=== PATIENT | male | born 1970 | race Caucasian/White ===

== ENCOUNTER 2017-04-24 06:42 | Day surgery (SDC) | payer OTHER ==
[2017-04-22 15:55] LABS: ABSOLUTE EOSINOPHILS # (AUTO) 0.1 10^3/uL (0.0-0.6); ABSOLUTE LYMPHOCYTES (AUTO) 1.7 10^3/uL (0.5-4.7); ABSOLUTE MONOCYTES (AUTO) 0.3 10^3/uL (0.1-1.4); ABSOLUTE NEUT (AUTO) 3.6 10^3/uL (1.7-8.2); BASOPHILS % (AUTO) 0.6 % (0-2); EOSINOPHILS % (AUTO) 1.2 % (0-6); HEMATOCRIT 45.9 % (37.9-51.0); HEMOGLOBIN 15.1 g/dL (13.5-17.0); HGB HCT DIFFERENCE -0.6; LYMPHOCYTES % (AUTO) 29.7 % (13-45); MEAN CORPUSCULAR HEMOGLOBIN 29.7 pg (27.0-33.4); MEAN CORPUSCULAR VOLUME 90 fl (80-97); MONOCYTES % (AUTO) 5.1 % (3-13); RED CELL DISTRIBUTION WIDTH 13.4 % (11.5-14.0); SEGMENTED NEUTROPHILS % (AUTO) 63.4 % (42-78); WHITE BLOOD COUNT 5.7 10^3/uL (4.0-10.5)
[2017-04-22 16:00] LABS: APPEARANCE,URINE CLEAR; BILIRUBIN,URINE NEGATIVE (NEGATIVE); GLUCOSE, URINE NEGATIVE (NEGATIVE); KETONES,URINE NEGATIVE (NEGATIVE); LEUKOCYTE ESTERASE,URINE NEGATIVE (NEGATIVE); NITRITE,URINE NEGATIVE (NEGATIVE); PROTEIN,URINE NEGATIVE (NEGATIVE); URINE SPECIFIC GRAVITY 1.005; UROBILINOGEN,URINE NEGATIVE mg/dL (<2.0)
[~2017-04-24 06:42] MED LIST: CLINDAMYCIN 600 MG/D5W RTU 600 MG/50 ML RTUPB IV PRN; RINGERS SOLUTION,LACTATED 1,000 ML IV PRN
[2017-04-24] MEDS ORDERED: MIDAZOLAM 2 MG/2 ML INJ ONE (07:30)
[2017-04-24] MEDS ORDERED: PROPOFOL INJ 200 MG/20 ML VIAL IV ONE (07:31)
[2017-04-24] MEDS ORDERED: FENTANYL CITRATE INJ/PF 250 MCG/5 ML AMPULE ONE (07:31)
[2017-04-24] MEDS ORDERED: KETAMINE HCL INJ 500 MG/10 ML VIAL ONE (07:31)
[2017-04-24] MEDS: BUPIVACAINE HCL 0.5 % INJ/PF 30 ML SDV ONE ×2 (09:51)
[2017-04-24] MEDS: LIDOCAINE 2% INJ (20 MG/ML) 20 ML MDV ONE ×2 (09:51)
--- NOTE | 2017-04-24 10:22 | RADIOLOGY REPORT (SQ) ---
EXAM DESCRIPTION: FOOT RIGHT 2 VIEWS COMPLETED DATE/TIME: 04/24/2017 10:08 am REASON FOR STUDY: HARDWARE PLACEMEMT/ REVISION RT FOOT ASSISTED W/ FLUORO M20.21 HALLUX RIGIDUS, RI GHT FOOT COMPARISON: None. FLUOROSCOPY TIME: 0.04 seconds 3 images saved to PACS. TECHNIQUE: Intra-operative images acquired during surgical procedure to evaluate progress. NUMBER OF IMAGES: 3 image LIMITATIONS: None. FINDINGS: Fluoroscopic images were obtained during performance of hardware placement for a right joselyn t revision. IMPRESSION: IMAGE(S) OBTAINED DURING PROCEDURE. COMMENT: Quality ID [id number]: Final reports for procedures using fluoroscopy that document radiation exp osure indices, or exposure time and number of fluorographic images (if radiation exposure indices are not available) Please consult full operative report of the attending physician for description of the procedure. TECHNICAL DOCUMENTATION: JOB ID: [id number] [employer] All Rights Reserved
--- NOTE | 2017-04-24 10:23 | RADIOLOGY REPORT (SQ) ---
EXAM DESCRIPTION: NO CHG FLUORO COMPLETE DATE/TIME: 04/24/2017 10:08 am REASON FOR STUDY: HARDWARE PLACEMEMT/ REVISION RT FOOT ASSISTED W/ FLUORO M20.21 HALLUX RIGIDUS, RI GHT FOOT FINDINGS: Please see combined report for performance of procedure and radiologic supervision and int erpretation. IMPRESSION: Please see combined report for performance of procedure and radiologic supervision and i nterpretation.
--- NOTE | 2017-04-24 11:29 | [facility] OPERATIVE REPORT E ---
[facility] Operative Report NAME: MASSIMO GUTIERRES AGE: 46Y DATE OF SURGERY: 04/24/2017 ROOM: PREOPERATIVE DIAGNOSIS: Hallux limitus right foot. POSTOPERATIVE DIAGNOSIS: Hallux limitus right foot. PROCEDURES PERFORMED: 1. Revision surgery of failed implant first metatarsophalangeal joint of right foot. 2. Arthroplasty with total Toribio toe implant right foot. SURGEON: SOWMYA RESENDIZ D.P.M. INTRAOPERATIVE FINDINGS: 1. Indicated exuberant scar formation around the first metatarsal joint caused be 2 previous surgical interventions in this area. 2. Proliferation of bone around the resected distal first metatarsal and the base of the proximal phalanx. 3. The grommets of the previous implant have been embedded into the bony tissue with proliferation of bone over the grommets. 4. The total Toribio implant was engulfed with scar tissue and totally lost its function. Intraoperative findings were confirmed clinically and radiographically. PROCEDURE: With the patient laying in a dorsal recumbent position, right foot and leg were prepped and draped in the usual standard sterile orthopedic manner after general anesthesia was accomplished successfully. Next, the right leg was elevated for approximately 2 minutes of time and the right ankle pneumatic tourniquet was inflated up to 250 mmHg after the blood was exsanguinated from the right foot. The right leg was brought to the level of the table. Attention was directed right over the first metatarsophalangeal joint. A curvilinear incision was placed right over the joint. The initial incision was deepened. The superficial and deep subcutaneous tissues were dissected with a great deal of difficulties due to the exuberant scar formation around this anatomical area. The extensor hallucis tendon was totally bound and incorporated into the scar tissue which caused some degenerative changes with the tendon. The extensor hallucis tendon was released from all adhesions at this point. By this time all bleeders were ligated and all vital structures were identified and protected from surgical trauma. Next, the capsulotomy was performed around the first metatarsophalangeal joint which was a T capsulotomy with the roof of the T capsulotomy being medial and adjacent to extensor hallucis longus tendon and the foot of the T capsulotomy was placed right over the joint and ran in medial and inferior direction. Capsular and periosteal structures were dissected off of bone. The capsule was also very thick due to severe scarring. There were lots of inflammatory synovitis present as well. At this point, the soft tissue was retracted and the failed implant was visualized. The implant was removed. The grommets were released from the bone tissue and removed in toto as well. At this point, the bed for the new implant needed to be prepared. The proliferation of the bone was eradicated. All the osteophytes had been resected and the bed into the proximal phalanx and into the distal part of the first metatarsal were reconstructed so the new implant can be seated without any problems. Once the preparatory work for the bed of the implant was completed, a trial implant was introduced and the size 4 was the proper size for this patient. With the trial implant in place, the first metatarsophalangeal joint was subjected to full range of motion and dorsiflexion was about 85 degrees with good plantar flexion as well. Next, the trial implant was removed. The surgical area was irrigated with copious amount of sterile saline solution and the reference toe implant size 4 was introduced into the surgical area. Final evaluation was conducted together with an intraoperative x-ray. The implant appeared to be pretty well seated in its bed and was the proper size as well. At this point the right ankle pneumatic tourniquet was deflated. Circulation to the right foot returned to normal immediately as the normal digital color and temperature became apparent. To prevent excessive scarring postoperatively, an AlloWrap was introduced into the surgical field and it coated the denuded bony surfaces at the distal aspect of the first metatarsal and the base of the proximal phalanx. After that the capsular structures were closed with 2-0 Vicryl. The subcutaneous tissues from deep to superficial were closed with 2-0 Vicryl. The skin edges were re-coapted and closed with 4-0 nylon using continuous interlocked stitch. Betadine compression dressing was applied around the surgical area. At this point, the total ankle block was performed with a 50/50 mixture of 2% Xylocaine and 0.5% Marcaine. Finally, the SHEBA bandage was applied around the surgical area as well followed with a surgical shoe. This patient tolerated the surgical procedures well and left the operating room with stable vital signs and in good condition. The patient was taken to the recovery room alert, conscious, and oriented. There are no permanent disabilities anticipated at this time. DICTATING PHYSICIAN: Mani HORTONPMeg [id number] PHY#: [id number] ID: [id number] JOB#: [id number] ACCT: [id number] cc:SOWMYA RESENDIZ D.P.M. > YOGI
== END 2017-04-24 11:34 | disposition home or self-care (01) ==
LOC: SC 06:42
PROVIDERS: ATTEND Podiatrist Foot & Ankle Surgery
PROC: 0HTRXZZ Resection of Toe Nail, External Approach (ICD-10-PCS; principal; 2017-04-24 07:30)
DX: M20.21 Hallux rigidus, right foot (principal); J45.909 Unspecified asthma, uncomplicated; F17.210 Nicotine dependence, cigarettes, uncomplicated; Z88.6 Allergy status to analgesic agent; Z88.5 Allergy status to narcotic agent; Z88.0 Allergy status to penicillin
CPT/HCPCS: 11750 ×2; 36415; 85025; 81001; 73620; J2250; J3490; J3010; J2704; 01480

== ENCOUNTER → 2017-09-01 | Outpatient (CLI) | payer OTHER ==
--- NOTE | 2017-09-01 09:16 | RADIOLOGY REPORT (SQ) ---
EXAM DESCRIPTION: CT ABD/PELVIS NO ORAL OR IV COMPLETED DATE/TIME: 09/01/2017 9:02 am REASON FOR STUDY: KIDNEY STONE (N20.0) N20.0 CALCULUS OF KIDNEY COMPARISON: None. TECHNIQUE: CT scan of the abdomen and pelvis performed without intravenous or oral contrast. Images reviewed with lung, soft tissue, and bone windows. Reconstructed coronal and sagittal MPR images revi ewed. All images stored on PACS. All CT scanners at this facility use dose modulation, iterative reconstruction, and/or weight based d osing when appropriate to reduce radiation dose to as low as reasonably achievable (ALARA). [facility]: Dose Right [facility]: CareDose [facility]: Dose Right [facility]: Teradose 4D [facility]: [employer] RADIATION DOSE: Up-to-date CT equipment and radiation dose reduction techniques were employed. CTDIv ol: 6.8 mGy. DLP: 374 mGy-cm.mGy. LIMITATIONS: None. FINDINGS: LOWER CHEST: No significant findings. No nodules or infiltrates. NON-CONTRASTED LIVER, SPLEEN, ADRENALS: Evaluation limited by lack of IV contrast. No identified sign ificant masses. PANCREAS: No masses. No peripancreatic inflammatory changes. GALLBLADDER: No identified stones by CT criteria. No inflammatory changes to suggest cholecystitis. RIGHT KIDNEY AND URETER: No suspicious masses. Assessment limited by lack of IV contrast. There are numerous nonobstructing right renal calculi. These range in size from approximately 1 mm up to 3.4 mm. There is a 4.4 mm proximal right ureteral stone. There is mild right-sided hydronephrosis. LEFT KIDNEY AND URETER: No suspicious masses. Assessment limited by lack of IV contrast. There are nonobstructing left renal calculi. These range between 1 and 2 mm in greatest diameter. No hydrone phrosis or hydroureter. AORTA AND RETROPERITONEUM: No aneurysm. No retroperitoneal masses or adenopathy. BOWEL AND PERITONEAL CAVITY: No obvious masses or inflammatory changes. No free fluid. APPENDIX: The appendix contains high attenuating material no surrounding inflammation. PELVIS, BLADDER, AND ABDOMINAL WALL:No abnormal masses. No free fluid. Bladder normal. BONES: No significant findings. OTHER: No other significant finding. IMPRESSION: 1. 4.4 mm proximal right ureteral stone with mild right-sided hydronephrosis. 2. Nonobstructing bilateral renal calculi. COMMENT: Quality ID # [id number]: Final reports with documentation of one or more dose reduction techniques (e.g., Automated exposure control, adjustment of the mA and/or kV according to patient size, use of iterative reconstruction technique) TECHNICAL DOCUMENTATION: JOB ID: [id number] [employer]- All Rights Reserved
== END ==
LOC: RAD 08:20
PROVIDERS: ATTEND Urology
DX: N20.0 Calculus of kidney (principal)
CPT/HCPCS: 74176